=== PATIENT | female | born 1970 | race Caucasian/White ===

== ENCOUNTER → 2020-02-06 14:22 | Outpatient (CLI) | payer OTHER, SELFPAY ==
--- NOTE | ~2020-02-06 | MR_ITS ---
EXAMINATION: MR foot LT wo con DATE: 02/06/2020 15:15 INDICATION: Left foot pain TECHNIQUE: Magnetic resonance imaging (MRI) of the left fore/mid foot was performed without intraveno us contrast. Sequences included sagittal T1-weighted FSE, sagittal fluid sensitive FSE STIR, coronal PD-weighted FS FSE, coronal T1-weighted FSE, axial PD-weighted FS FSE, and axial PD-weighted FSE. COMPARISON: None FINDINGS: Bone alignment is normal. No fracture. Mild osteoarthritis at the tibiotalar joint. There is prominen t cystic change at the navicula underlying small region of cortical depression at the central aspect of the navicula which is likely sequela of an old osteochondral lesion or trauma. Additional mild ost eoarthritis at the subtalar, first metatarsophalangeal and several tarsal metatarsal joints. Physiolo gic amount fluid in the joint spaces. No abnormal fluid collections. Lisfranc ligament and the collat eral ligament complexes at the metatarsophalangeal and interphalangeal joints are normal. The flexor and extensor tendons are unremarkable. Intrinsic musculature of the foot is normal. IMPRESSION: 1. Mild polyarticular osteoarthritis as detailed above most notable for prominent degenerative subart icular cyst at the navicula underlying a small region of depressed articular cortex which could repre sent either sequela chronic osteochondral lesion or old trauma. Reviewed, dictated and finalized at location B. IMPRESSION: 1. Mild polyarticular osteoarthritis as detailed above most notable for promine nt degenerative subarticular cyst at the navicula underlying a small region of depressed articular cortex which could represent either sequela chronic osteoch ondral lesion or old trauma.
== END ==
PROVIDERS: Visit Provider Podiatrist Foot & Ankle Surgery
DX: M19.072 Primary osteoarthritis, left ankle and foot (principal)
CPT/HCPCS: 73718

== ENCOUNTER → 2020-02-20 10:46 | Outpatient (CLI) | payer OTHER, SELFPAY ==
--- NOTE | ~2020-02-20 | DEXA_ITS ---
Bone Density Report Name: Estrellita Khan Age: 49 Sex: Female Ethnicity: White Date of : 1970 Indication: postmenopausal; history of glucocorticoids; prior fracture; hysterectomy; Referring Provider: DONY UFLLER Study: Bone densitometry was performed. Exam Date: February 20, 2020 Accession number: [id number] Bone Density: Region BMD T-score Z-score Classification AP Spine (L1-L4) 0.976 -0.6 0.0 Normal Femoral Neck (Left) 0.770 -0.7 0.0 Normal Total Hip (Left) 1.076 1.1 1.5 Normal Femoral Neck (Right) 0.751 -0.9 -0.2 Normal Total Hip (Right) 1.023 0.7 1.1 Normal Total Hip Mean 1.050 0.9 1.3 Normal World Health Organization criteria for BMD impression classify patients as: Normal (T-score at or above -1.0), Osteopenia (T-score between -1.0 and -2.5), or Osteoporosis (T-score at or below -2.5). 10-year Fracture Risk: FRAX not reported because: All T-scores for Spine Total, Hip Total, Femoral Neck at or above -1.0 Treated for osteoporosis Clinical Information Provided by Patient: Has had a low trauma fracture Has taken Glucocorticoids Is being treated for osteoporosis Has used the following medications: HRT (i.e. estrogen/hormone therapy), Vitamin D, PREDNESONE Has the following medical conditions: Hysterectomy Patient maximum height was 65 Menopause Age: 28 Drinks caffeinated beverages Onset of menses at age 14 Number of children 2 Impression: The patient has normal bone mass. The patient has risk factors, including: previous fracture, history of glucocorticoid therapy. Discussion: It is important to ask patients whether they are taking their medications and to encourage continued and appropriate compliance with their osteoporosis therapies to reduce fracture risk. It is also important to review their risk factors and encourage appropriate calcium and vitamin D intakes, exercise, fall prevention and other lifestyle measures. Follow-Up: Consider a repeat BMD and Vertebral Fracture Assessment (VFA) exam in 2 years or sooner if medically necessary, to reassess this patient's status. Reported by: [facility] on 02/20/2020 11:27:00 AM. Reviewed, dictated and finalized at location ANnamdi BURNS
== END ==
DX: T14.8XXA Other injury of unspecified body region, initial encounter (principal)
CPT/HCPCS: 77080

== ENCOUNTER → 2020-03-19 09:18 | Outpatient (CLI) | payer OTHER, SELFPAY ==
--- NOTE | ~2020-03-19 | MM_ITS ---
EXAMINATION: MM screening natalia BI w jasmine HISTORY: Screening mammogram TECHNIQUE: Craniocaudal and mediolateral oblique 3-D tomosynthesis images were obtained and synthetic 2-D images were generated. CAD analysis was submitted and interpreted. COMPARISON: 07/27/2015 left screening and right diagnostic digital mammogram examination and limited ri ght breast ultrasound BREAST PARENCHYMAL COMPOSITION: There are scattered areas of fibroglandular density. FINDINGS: There are scattered bilateral benign calcifications. There is no evidence of suspicious mas s, calcification, or architectural distortion to suggest malignancy in either breast. There has been no suspicious interval change. IMPRESSION: 1. No mammographic evidence of malignancy. 2. Recommend routine screening mammography in one year. BI-RADS Category 2: Benign finding(s). Reviewed, dictated and finalized at location A. [employer]
== END ==
DX: Z12.31 Encounter for screening mammogram for malignant neoplasm of breast (principal)
CPT/HCPCS: 77063; 77067

== ENCOUNTER → 2022-01-20 16:04 | Outpatient (CLI) | payer OTHER, SELFPAY ==
--- NOTE | ~2022-01-20 | US_ITS ---
EXAMINATION: US soft tissue head and neck DATE: 01/20/2022 16:46 INDICATION: Cervical lymphadenopathy. TECHNIQUE: Multiple grayscale and Doppler ultrasound images of the neck were obtained. COMPARISON: None FINDINGS: There are normal lymph nodes in the neck bilaterally. IMPRESSION: 1. No abnormal neck mass or lymphadenopathy. Reviewed, dictated and finalized at location A.
== END ==
PROVIDERS: PCP Hospitalist; Visit Provider Hospitalist
DX: R59.1 Generalized enlarged lymph nodes (principal)
CPT/HCPCS: 76536

== ENCOUNTER 2022-08-25 18:13 | Emergency (ER) | payer OTHER, SELFPAY ==
[2022-08-25 18:14] VITALS: BP 161/96; PULSE 97; RESP 16; TEMP 36.3; O2SAT 100
--- NOTE | 2022-08-25 19:26 | ED.EYEPROB ---
HPI - Eye Problem General Chief complaint: Eye Problems Stated complaint: bilateral red eyes Time Seen by Provider: 08/25/22 18:53 History of Present Illness HPI Narrative: 52-year-old female presented to the emergency department for evaluation of worsening eye redness. Patient initially began having irritation of her right eye and was seen at urgent care and started on Polymycin drops and then had irritation of both eyes. Patient has had no discharge from the eyes but states she mainly has eye burning at this point. Patient denies any change in vision. Patient does have follow-up with ophthalmology scheduled for tomorrow. Patient has allergies to latex B venom and hydromorphone. Related Data Allergies Allergy/AdvReac Type Severity Reaction Status Date / Time bee venom protein (honey bee) Allergy Severe Anaphylactic Verified 08/25/22 18:14 Shock hydromorphone Allergy Severe Anaphylactic Verified 08/25/22 18:14 Shock latex Allergy Unknown REDNESS; Verified 08/25/22 18:14 ITCHING Camryn Nut Allergy Severe Anaphylactic Uncoded 08/25/22 18:14 Shock Review of Systems Review of Systems: All systems reviewed & are unremarkable except as noted in HPI and below Exam Narrative: APPEARANCE: Well appearing, no pain, no distress, well-nourished. HEAD: normocephalic, atraumatic. EYES: Bilateral eye erythema worsened on right than left, no fluorescein uptake, no discharge from eyes NOSE: Normal no drainage NEURO: Alert. Cranial nerves II through XII intact. Grossly intact SKIN: Warm, dry. Normal Color Course Course Emergency Course: No fluorescein uptake on eyes bilaterally. No discharge from eyes. Exam is more concerning for allergic conjunctivitis. Patient was advised to stop using her current antibiotic drops. Patient was encouraged to use natural tears and to start taking diphenhydramine. Patient does have follow-up with ophthalmology scheduled for the morning. Vital Signs Vital signs: Vital Signs Temperature 97.4 F L 08/25/22 18:14 Pulse Rate 97 08/25/22 18:14 Respiratory Rate 16 08/25/22 18:14 Blood Pressure 161/96 H 08/25/22 18:14 Pulse Oximetry 100 08/25/22 18:14 Oxygen Delivery Room Air 08/25/22 18:14 Temperature 97.4 F L 08/25/22 18:14 Pulse Rate 97 08/25/22 18:14 Respiratory Rate 16 08/25/22 18:14 Blood Pressure 161/96 H 08/25/22 18:14 Pulse Oximetry 100 08/25/22 18:14 Oxygen Delivery Room Air 08/25/22 18:14 Discharge Plan Discharge Clinical Impression: Acute allergic conjunctivitis of both eyes Patient Disposition: Home, Self-Care Condition: Stable Instructions: Antibiotic Form, Conjunctivitis (ED) Additional Instructions: Stop using the antibiotic drops. Use natural tears to help lubricate the eyes. I do recommend taking Benadryl. Have close follow-up with ophthalmology as scheduled. If you have any worsening symptoms then please call or return to the emergency department. Follow-up/Referrals: Maria C,Jean-Claude Carlton Jr., MD [Primary Care Provider] -
== END 2022-08-25 19:36 | disposition home or self-care (01) ==
PROVIDERS: Emergency Provider Emergency Medicine; PCP Hospitalist
DX: H10.13 Acute atopic conjunctivitis, bilateral (principal)
CPT/HCPCS: 99283

== ENCOUNTER 2022-09-04 13:23 | Outpatient (CLI) | payer OTHER, SELFPAY ==
--- NOTE | ~2022-09-04 | US_ITS ---
US thyroid INDICATION: Thyroid goiter TECHNIQUE: Real-time sonographic images of the thyroid gland were obtained. COMPARISON: 01/20/2022 FINDINGS: The right thyroid lobe measures 3.5 x 1.1 x 1.5 cm. The left thyroid lobe measures 4 x 0.9 x 1.2 cm. There is normal echotexture and echogenicity throughout the thyroid gland. In the right lo be there is a 2 mm cyst. In the isthmus measures a 7 mm cyst. No suspicious masses are identified. No rmal vascular flow is present. IMPRESSION: 1. Benign cyst of the right thyroid lobe and isthmus. Otherwise, unremarkable thyroid ultrasound. Reviewed, dictated and finalized at location B.
== END 2022-09-04 13:24 ==
PROVIDERS: PCP Hospitalist
DX: E04.2 Nontoxic multinodular goiter (principal)
CPT/HCPCS: 76536

== ENCOUNTER 2023-04-01 17:47 | Emergency (ER) | payer OTHER, SELFPAY ==
--- NOTE | ~2023-04-01 | XR_ITS ---
EXAM: XR finger 2nd LT min 2V, XR finger 3rd LT min 2V DATE: 04/01/2023 18:42 HISTORY: smashed in car door . COMPARISON: None available. FINDINGS: Normal mineralization. No fracture or dislocation. Very small focus of amorphous calcifica tion over the extensor tendon of the second digit, may represent calcific tendonitis. No lytic or norman stic lesion. Joint spaces are maintained. No erosion or periosteal change. Soft tissues within normal limits. IMPRESSION: No acute osseous finding in the left second or third fingers. Reviewed, dictated and finalized at location K. [facility] [employer] IMPRESSION: No acute osseous finding in the left second or third fingers.
[2023-04-01 17:48] VITALS: BP 141/91; PULSE 95; RESP 18; TEMP 36.3; O2SAT 99
--- NOTE | 2023-04-01 18:55 | ED.UPPEXIN ---
HPI - Extremity Injury (Upper) General Chief Complaint: Extremity Injury, Upper Stated Complaint: left finger injury Time Seen by Provider: 04/01/23 18:45 History of Present Illness HPI narrative: Patient is a 53-year-old female with history of Mauro's here with traumatic injury to the hand. She states that around 4:00 a.m. this evening she was caring a few things out of a car and in the door slammed against her fingers. She notes that she injured her pointer and middle finger on the left hand. She is right-handed. She immediately applied ice and took some Tylenol. She notes she has had some increasing swelling since the injury happened as well as pain and was concerned that she may have broken one of her fingers. She notes normal sensation and some decreased movement of those fingers due to pain. No additional injuries. No blood thinner use. Related Data Allergies Allergy/AdvReac Type Severity Reaction Status Date / Time bee venom protein (honey bee) Allergy Severe Anaphylactic Verified 08/25/22 18:14 Shock hydromorphone Allergy Severe Anaphylactic Verified 08/25/22 18:14 Shock latex Allergy Unknown REDNESS; Verified 08/25/22 18:14 ITCHING Camryn Nut Allergy Severe Anaphylactic Uncoded 08/25/22 18:14 Shock Review of Systems Review of Systems: All systems reviewed & are unremarkable except as noted in HPI and below Exam Narrative: GENERAL: Well-appearing, well-nourished, and in no acute distress. HEAD: Normocephalic, atraumatic. EYES: PERRLA and EOMI. ENT: Nares clear. Mucous membranes moist. NECK: Supple. CHEST: Clear to auscultation. No respiratory distress. HEART: Regular rate and rhythm. Normal peripheral pulses. ABDOMEN: Soft, nontender, nondistended. EXTREMITIES: Patient has tenderness and swelling over the proximal index and middle phalanx on the left hand. She has swelling which extends from the MCP joint distally past the PIP joint. they are tender to touch with no ecchymosis or erythema appreciated. No open lacerations. normal sensation intact over the fingers, good capillary refill bilaterally. She has painful but normal range of motion of the middle finger. She has some decreased range of motion of the index finger which is largely due to pain. On isolation of both the DIP and PIP joint she is able to flex these. no tenderness throughout the metacarpals of the hand and no tenderness in the wrist. Strong radial pulse. SKIN: Warm, dry, no rash. NEURO: No focal deficits. Alert and oriented x3. PSYCH: Normal mood and affect. Course Course Emergency Course: Chart review performed. Patient here with hand injury. Triage vitals grossly normal. Only prior visit in our system was earlier this year for conjunctivitis. X-rays reviewed by myself, no obvious fracture, will await Radiology read. Patient seen evaluated, nontoxic appearing. She appears to have an isolated hand injury which seems to be located over the index and middle finger. Patient applies any additional pain medication. Discussed awaiting radiology reads. She is agreeable. X-ray negative for fracture per Radiology. Patient advised you Tylenol and ibuprofen for pain. Advised to contact primary care doctor next week to coordinate close follow-up to ensure she has improving symptoms. The results of pertinent diagnostic studies and exam findings were discussed. The patient?s provisional diagnosis and plan of care were discussed with the patient and present family. The patient and/or present family expressed understanding of the diagnosis and plan. The nurse was instructed to provide written instructions and appropriate follow-up information. The patient understands their need and responsibility to obtain additional follow-up as instructed. The risks of medications administered and prescribed were discussed with the patient and family present. Vital Signs Vital signs: Vital Signs Temperature 97.4 F L 12/10
== END 2023-04-01 19:25 | disposition home or self-care (01) ==
PROVIDERS: Emergency Provider Student in an Organized Health Care Education/Training Program; PCP Hospitalist
DX: S60.022A Contusion of left index finger without damage to nail, initial encounter (principal); S60.032A Contusion of left middle finger without damage to nail, initial encounter; S60.222A Contusion of left hand, initial encounter; W23.0XXA Caught, crushed, jammed, or pinched between moving objects, initial encounter
CPT/HCPCS: 73140; 99283

== ENCOUNTER 2023-12-03 09:07 | Outpatient (CLI) | payer BC, SELFPAY ==
--- NOTE | ~2023-12-03 | XR_ITS ---
XR knee LT 3V Ordering provider: Jean-Claude Lombardi MD Marissa History: . knee trauma, tenderness . Comparison: None. FINDINGS: BONES: No acute fracture or dislocation. JOINT SPACES: Normal. SOFT TISSUES: Normal. Ossification of the insertion of the quadriceps tendon. IMPRESSION: No acute osseous abnormality left knee. Reviewed, dictated and finalized at location A.
== END 2023-12-03 09:08 ==
LOC: MICIMG 09:09
PROVIDERS: PCP Hospitalist; Visit Provider Hospitalist
DX: S89.92XA Unspecified injury of left lower leg, initial encounter (principal); X58.XXXA Exposure to other specified factors, initial encounter
CPT/HCPCS: 73562

== ENCOUNTER 2023-12-06 10:32 | Outpatient (CLI) | payer BC, SELFPAY ==
--- NOTE | ~2023-12-06 | MR_ITS ---
EXAMINATION: MR knee LT wo con DATE: 12/06/2023 11:14 INDICATION: Left knee injury TECHNIQUE: Magnetic resonance imaging (MRI) of the left knee was performed without intravenous contra st. Sequences included coronal PD-weighted FSE, coronal PD-weighted FS FSE, sagittal T2-weighted FSE , sagittal PD-weighted FS FSE and axial PD weighted fat saturated FSE. COMPARISON: None. FINDINGS: Medial compartment: Medial meniscus is normal. There is mild partial-thickness cartilage loss with smooth chondral surfac e irregularity along the anterior to central weightbearing medial femoral condyle and with relatively smooth chondral surface along the posterior half of the medial tibial plateau. Small region of high- grade chondromalacia with underlying subtle cortical irregularity and mild subarticular edema-like si gnal change along the lateral aspect of the central weightbearing medial femoral condyle. Lateral compartment: Lateral meniscus is normal. Small region of deep chondral fissuring with minimal underlying subarticu lar edema-like signal change at the central aspect of the lateral tibial plateau. Additional deep cho ndral fissuring at the posterior weightbearing lateral femoral condyle. Patellofemoral compartment: Deep chondral ulceration involving greater than 50% the cartilage thickness and with minimal underlyi ng edema-like signal change at the lateral half of the medial patellar facet extending to the apical ridge. Additional partial-thickness chondral ulceration and deep fissuring at the central aspect of t he trochlear groove and inferior aspect of the medial trochlea. Ligaments and tendons: Anterior and posterior cruciate ligaments are normal. The medial collateral ligament and fibular ke ateral ligament complex are normal. Patellar tendon is normal. Mild distal quadriceps tendinopathy wi th small enthesopathic ossicle but without tear. The visualized medial and lateral hamstring tendons as well as the iliotibial band are normal. Fluid: Physiologic amount of fluid in the joint space. No loose osteochondral bodies identified. Mild pretib ial subcutaneous edema without discrete bursal fluid collection. Osseous/other: Bone alignment is normal. No fracture or pathologic marrow replacing process. IMPRESSION: 1. Mild osteoarthritis with small regions of moderate to high-grade chondromalacia in all 3 compartme nts of the left knee. 2. Normal menisci and stabilizing ligaments of the knee with no joint effusion or acute osseous abnor mality. Reviewed, dictated and finalized at location A. IMPRESSION: 1. Mild osteoarthritis with small regions of moderate to high-grade chondromala yony in all 3 compartments of the left knee. 2. Normal menisci and stabilizing ligaments of the knee with no joint effusion or acute osseous abnormality.
== END 2023-12-06 10:33 ==
LOC: GOSHIMG 10:34
PROVIDERS: PCP Hospitalist; Visit Provider Hospitalist
DX: S89.92XA Unspecified injury of left lower leg, initial encounter (principal); X58.XXXA Exposure to other specified factors, initial encounter; M17.12 Unilateral primary osteoarthritis, left knee
CPT/HCPCS: 73721

== ENCOUNTER 2024-03-05 09:57 | Outpatient (CLI) | payer BC, SELFPAY ==
--- NOTE | ~2024-03-05 | US_ITS ---
EXAMINATION: US thyroid DATE: 03/05/2024 10:22 INDICATION: Thyroid nodule. TECHNIQUE: Multiple ultrasound images of the thyroid were obtained. COMPARISON: Ultrasound 09/04/2022 FINDINGS: The right thyroid lobe measures 3.7 x 1.1 x 1.4 cm. The left thyroid lobe measures 4.0 x 1.0 x 1.2 c m. In the right thyroid lobe, there is a 4 mm nodule. In the left thyroid lobe, there is a 5 mm radha d, hypoechoic, wider than tall nodule with smooth margin without echogenic foci (TI-RADS TR4). In the right thyroid lobe, there is a 3 mm nodule. IMPRESSION: 1. Small thyroid nodules, likely not clinically significant. No follow-up is needed. Reviewed, dictated and finalized at location A. [employer] IMPRESSION: 1. Small thyroid nodules, likely not clinically significant. No follow-up is ne eded.
== END 2024-03-05 09:58 | disposition home or self-care (01) ==
LOC: MICIMG 09:58
PROVIDERS: PCP Hospitalist; Visit Provider Hospitalist
DX: E04.2 Nontoxic multinodular goiter (principal)
CPT/HCPCS: 76536

== ENCOUNTER 2024-07-30 09:34 | Outpatient (CLI) | payer BC, SELFPAY ==
--- NOTE | ~2024-07-30 | CT_ITS ---
EXAMINATION: CT soft tissue neck w con DATE: 07/30/2024 09:53 INDICATION: Lymphadenopathy TECHNIQUE: Computed tomography (CT) of the neck was performed with 75 mL Omnipaque-350 intravenous co ntrast. Automated exposure control and iterative reconstruction technique were employed. The dose-emily gth product was 335.41 mGy-cm. COMPARISON: None FINDINGS: Visualized upper lungs are clear. Visualized superior mediastinum is unremarkable. Orbits are normal. The paranasal sinuses are clear. Visualized sinuses and mastoid aircells are well aerated. Submandib ular and parotid glands are symmetric. Small calcification at the junction of the right thyroid lobe and the thyroid isthmus. There are scattered normal-sized lymph nodes in the neck, no lymphadenopathy . No masses identified. Atherosclerotic calcific a cyst at the bilateral carotid bulbs which does no t appear hemodynamically significant although assessment is somewhat limited by motion artifact at th is level. Airway is unremarkable. Mild cervical spondylosis. IMPRESSION: 1. Normal sized cervical lymphadenopathy. No abnormal cervical masses or pathologically enlarged lymp hadenopathy. Reviewed, dictated and finalized at location B. IMPRESSION: 1. Normal sized cervical lymphadenopathy. No abnormal cervical masses or pathol ogically enlarged lymphadenopathy.
== END 2024-07-30 09:35 | disposition home or self-care (01) ==
LOC: MICIMG 09:35
PROVIDERS: PCP Hospitalist; Visit Provider Nurse Practitioner Family
DX: R59.1 Generalized enlarged lymph nodes (principal)
CPT/HCPCS: 70491; Q9967